=== PATIENT | male | born 1950 | race Caucasian/White ===

== ENCOUNTER → 2019-07-09 | Day surgery (SDC) | payer MEDICARE, OTHER ==
[2019-07-04 10:59] VITALS: BMI 25.7
[~2019-07-09] MED LIST: LACTATED RINGERS 1,000 ML IV SCH; LIDOCAINE 1% (10MG/ML) FOR IV START INTRADERMA PRN; MIDAZOLAM 2 MG/2 ML VIAL IV PRN; PROPOFOL 10 MG/ML 20 ML VIAL IV ONE
[2019-07-09 08:16] VITALS: RESP 16; TEMP 97.8
--- NOTE | 2019-07-09 09:45 | P.OP ---
Date of Procedure: 07/09/19 Preoperative Diagnosis: History: Polyps Postoperative Diagnosis: Normal colon Procedure(s) Performed: Colonoscopy Anesthesia: MAC Surgeon: Yuriy Rivero Pathology: none sent Condition: stable Disposition: PACU Description of Procedure: PROCEDURE: The patient was placed on the endoscopy table in the lateral position. Digital rectal examination was performed which revealed no abnormalities. The prostate was symmetrical without nodules. Flexible colonoscope was then placed in the patient's anus and passed throughout the entire colon. The ileocecal valve was visualized. The cecum, ascending, transverse, descending and sigmoid colon were normal. The rectum was normal as well. There were no masses, polyps or diverticula noted in the entire colon. SUMMARY OF FINDINGS: Normal colonoscopy.
--- NOTE | 2019-07-09 09:46 | P.GSHP ---
History of Present Illness H&P Date: 07/09/19 Chief Complaint: History: Polyps This a 69-year-old male who presents today for colonoscopy. Patient's last colonoscopy over 10 years ago. Patient states he had colon polyps of the time. Past Medical History Additional Past Medical History / Comment(s): hx of colon polyps History of Any Multi-Drug Resistant Organisms: None Reported Past Surgical History: Cholecystectomy, Hernia Repair Additional Past Surgical History / Comment(s): colonoscopy Past Anesthesia/Blood Transfusion Reactions: No Reported Reaction Smoking Status: Former smoker - Past Family History Father Family Medical History: Cancer Additional Family Medical History / Comment(s): lung Sister(s) Family Medical History: Cancer Additional Family Medical History / Comment(s): 2 sisters breast Medications and Allergies Home Medications Medication Instructions Recorded Confirmed Type No Known Home Medications 07/04/19 07/09/19 History Allergies Allergy/AdvReac Type Severity Reaction Status Date / Time No Known Allergies Allergy Verified 07/09/19 08:09 Surgical - Exam Vital Signs Temp Pulse Resp BP Pulse Ox 97.8 F 82 16 140/67 97 07/09/19 08:14 07/09/19 08:14 07/09/19 08:14 07/09/19 08:14 07/09/19 08:14 - General well developed, well nourished, no distress - Eyes PERRL - ENT normal pinna - Neck no masses - Respiratory normal expansion - Cardiovascular Rhythm: regular - Abdomen Abdomen: soft, non tender Assessment and Plan Assessment: History of colon polyps. We'll perform colonoscopy.
[2019-07-09 09:49] VITALS: PULSE 63
[2019-07-09 10:07] VITALS: BP 130/71
== END | disposition home or self-care (01) ==
LOC: ORWHC2ENDO 07:51
PROVIDERS: ATTEND Surgery
DX: Z12.11 Encounter for screening for malignant neoplasm of colon (principal); Z86.010 Personal history of colon polyps; M19.90 Unspecified osteoarthritis, unspecified site; Z90.49 Acquired absence of other specified parts of digestive tract; Z98.890 Other specified postprocedural states; Z87.891 Personal history of nicotine dependence; Z80.1 Family history of malignant neoplasm of trachea, bronchus and lung; Z80.3 Family history of malignant neoplasm of breast
CPT/HCPCS: G0105; J2704; 45378

== ENCOUNTER → 2022-03-23 | Outpatient (CLI) | payer MEDICARE ==
[~2022-03-23] MED LIST changes: -LACTATED RINGERS 1,000 ML IV SCH; -LIDOCAINE 1% (10MG/ML) FOR IV START INTRADERMA PRN; -MIDAZOLAM 2 MG/2 ML VIAL IV PRN; -PROPOFOL 10 MG/ML 20 ML VIAL IV ONE; +REGADENOSON 0.4 MG/5 ML SYRINGE IV PRN
--- NOTE | 2022-03-23 11:28 | NM ---
EXAMINATION TYPE: NM stress lexiscan cardiolite DATE OF EXAM: 03/23/2022 COMPARISON: NONE HISTORY: Precordial chest pain and abnormal EKG TECHNIQUE: After the intravenous administration of 9.4 mCi Tc 99m Sestamibi - Cardiolite resting SPE CT images acquired 45 minutes post injection. The patient received 0.4mg Lexiscan, 24.1 mCi Tc 99m Sestamibi - Stress images obtained [address] injection FINDINGS: Review of stress and rest SPECT images demonstrates decreased perfusion inferior wall which could ref lect attenuation artifact. Correlate clinically. Gated analysis shows normal wall motion with an cecelia mated left ventricular ejection fraction of 53% %. IMPRESSION: I cannot exclude reversible ischemia inferior wall.
--- NOTE | 2022-03-23 13:14 | CA ---
Lexiscan Nuclear Stress Test Report Name: Bennie Colvin Exam Date: 03/23/2022 10:02 Exam Location: [facility] Stress Ht (in): 73 Wt (lb): 195 BSA: 2.13 Ordering Phys: Sherry Miller DO Referring Phys: WILLY, Technologist: Jose Shepherd Age: 72 Gender: M : 1950 Procedure CPT: Indications: I20.9 ICD-10 Codes: Patient History: Medications: Meds past 24 hrs: Pretest Chest Pain: STRESS TEST Lexiscan Protocol Exercise Duration (min:sec): 02:[address] Depressions (mm): Angina Score: Siddiqi Score: Resting HR (bpm): 54 Peak HR (bpm): 85 Resting BP (mmHg): 128 / 76 Peak BP (mmHg): / 68 MPHR: 150 Target HR: 128 % MPHR: 57 METS: 1.0 Total Dose: Peak Dose: Atropine: Double Product: BP Response: Stress Termination: PROTOCOL COMPLETED Stress Symptoms: NO SYMPTOMS Stress Summary: ECG ANALYSIS Resting ECG: Stress ECG: CONCLUSIONS At baseline EKG showed normal sinus rhythm, normal axis, incomplete right bundle branch block with no significant ST or T wave abnormalities. Patient recieved IV infusion of Lexiscan 0.4mg and at peak infusion EKG showed no significant change from baseline. Conclusions: 1. Normal EKG response to Lexiscan infusion 2. Nuclear imaging to be reported separately. Dr. Alcides Trent DO (Electronically Signed) Final Date: 23 March 2022 13:13
== END | disposition home or self-care (01) ==
LOC: RADNMMAIN 07:59
PROVIDERS: ATTEND Family Medicine
DX: I20.9 Angina pectoris, unspecified (principal)
CPT/HCPCS: 93017; 78452; A9500; J2785

== ENCOUNTER → 2022-07-20 | Outpatient (CLI) | payer MEDICARE ==
--- NOTE | 2022-07-20 16:14 | MR ---
EXAMINATION TYPE: MR lumbar spine wo con DATE OF EXAM: 07/20/2022 COMPARISON: NONE HISTORY: Knee pain, low back pain into bilateral thighs for 8 months. Radiculopathy per order. TECHNIQUE: Multiplanar, multisequence imaging of the lumbar spine is performed without IV contrast. FINDINGS: Slight scoliotic curvature. Sagittal images of the lumbar spine show vertebral body heights and alignment to appear satisfactory. Multilevel disc desiccation. There is moderate to advanced dis c space narrowing with heterogeneous more reticular endplate changes at L3-L4 and L4-L5 levels. The c onus medullaris is normal in position and signal ending mid T12 level. Axial images at T12-L1 level appear within normal limits. Axial images at L1-L2 level show mild broad disc bulge minimally effacing the anterior thecal sac. Pa tent bilateral neural foramina are seen. Axial images at L2-L3 level show mild facet arthropathy and ligamentum flavum hypertrophy effacing th e left posterior lateral thecal sac. There is mild broad disc bulge with right foraminal component ca using mild right-sided anterior inferior neural foraminal narrowing. Axial images at L3-L4 level show posterior spur disc complex minimally effaces the anterior thecal sa c along with mild facet arthropathy bilaterally. There is mild left-sided anterior inferior neural fo raminal narrowing. Axial images at L4-L5 level show moderate broad disc bulge and mild facet arthropathy. There is mild left-sided anterior inferior foraminal narrowing. Axial images at L5-S1 level mild facet arthropathy bilaterally. Bilateral neural foramina are patent. The paraspinal muscle bulk is preserved. IMPRESSION: Slight scoliotic curvature loss of normal lumbar lordosis. Multilevel degenerative change s are seen as detailed above.
== END | disposition home or self-care (01) ==
LOC: RADMRIMAIN 15:07
PROVIDERS: ATTEND Orthopaedic Surgery
DX: M47.27 Other spondylosis with radiculopathy, lumbosacral region (principal); M41.86 Other forms of scoliosis, lumbar region; M25.561 Pain in right knee; M25.562 Pain in left knee
CPT/HCPCS: 72148